=== PATIENT | female | born 1985 | race Caucasian/White ===

== ENCOUNTER 2023-06-14 09:09 | Outpatient (CLI) | payer MEDICAID, SELFPAY ==
[2023-06-14 15:13] LABS: Chlamydia DNA Amplified* NOT DETECTED (No Detected); GC DNA Amplified* NOT DETECTED (No Detected)
== END 2023-06-14 09:10 | disposition home or self-care (01) ==
PROVIDERS: PCP Family Medicine; Visit Provider Obstetrics & Gynecology
DX: Z11.3 Encounter for screening for infections with a predominantly sexual mode of transmission (principal)
CPT/HCPCS: 87491; 87591

== ENCOUNTER 2023-09-07 10:55 | Outpatient (CLI) | payer MEDICAID, SELFPAY ==
--- NOTE | 2023-09-07 11:15 | US_ITS ---
Final Report Patient: ALISA MENDIOLA Facility:?[facility] Patient ID:?[id number] Site Patient ID:?[id number]. Site :?[id number] Study:?US OB Pelvis TV dating/viability-09/07/2023 12:09:01 PM Ordering Physician:LEONCIO Final Report: INDICATION: Dating and viability. LMP 07/07/2023 (irregular). COMPARISON: None. TECHNIQUE: Real-time dong-scale imaging of the pelvis was performed. FINDINGS: Sonographic imaging demonstrates a single living intrauterine gestation. The embryo has a regular cardiac rate measuring 138 beats per minute. The embryo`s crown-rump length measures 1.1 cm which corresponds to a gestational age of 7 weeks 1 day with sonographic due date 04/24/2024. There is a normal-appearing yolk sac. The placenta has not yet developed. No evidence of a perigestational hemorrhage. The right ovary measures 3.5 x 2.1 x 2.0 cm and the left ovary measures 4.4 x 2.0 x 1.9 cm. Corpus luteal cyst in the left ovary. No free fluid in the pelvic cul-de-sac. IMPRESSION: 1. Single living intrauterine gestation corresponding to a gestational age of 7 weeks 1 day with sonographic due date 04/24/2024. 2. The clinical gestational age by LMP is 8 weeks 6 days. Dictated by Niyah Parker MD @ 09/08/2023 2:32:42 AM (Electronic Signature)
== END 2023-09-07 10:56 | disposition home or self-care (01) ==
LOC: US 10:55
PROVIDERS: PCP Family Medicine; Visit Provider Physician Assistant
DX: Z34.91 Encounter for supervision of normal pregnancy, unspecified, first trimester (principal); Z3A.08 8 weeks gestation of pregnancy
CPT/HCPCS: 76817

== ENCOUNTER 2023-09-07 12:10 | Outpatient (CLI) | payer MEDICAID, SELFPAY | END 2023-09-07 12:11 | disposition home or self-care (01) | PROVIDERS: PCP Family Medicine; Visit Provider Physician Assistant | DX: Z34.91 Encounter for supervision of normal pregnancy, unspecified, first trimester (principal) | CPT/HCPCS: 86592; 86703; 86704; 86706; 86762; 86787; 86803; 86850; 86900; 86901; 87086; 87340 ==

== ENCOUNTER 2024-01-13 16:57 | Emergency (ER) | payer MEDICAID, SELFPAY ==
[2024-01-13 17:07] VITALS: BP 135/88; PULSE 82; RESP 18; TEMP 36.3; O2SAT 98; BMI 29.0
--- NOTE | 2024-01-13 17:17 | ED.GENADULT ---
HPI - General Adult General Chief complaint: Head Injury/Pain Stated complaint: 25 wks preg, fell on side and hit head Time Seen by Provider: 01/13/24 17:01 History of Present Illness HPI narrative: This 38-year-old female is 25 weeks and comes in because of a fall that occurred prior to arrival. She was stepping on a small step stool and as she planted her weight on the stool the legs of the stool collapsed causing her to fall in [place] wall where she hit her head. She then did fall on top of the stool. She was able to get up. She did not have any loss of consciousness. She does report a mild to moderate headache. She has not had any vomiting and does not report any other injury. Related Data Home Medications ?Medication ?Instructions ?Recorded ?Confirmed docosahexaenoic acid 200 mg mg PO 09/07/23 12/27/23 capsule ( DHA) calcium carbonate (Tums) 200 mg PO BID 12/27/23 12/27/23 Previous Rx's ?Medication ?Instructions ?Recorded sertraline 50 mg tablet 50 mg PO QDAY #90 tabs 10/26/23 Allergies Allergy/AdvReac Type Severity Reaction Status Date / Time amoxicillin Allergy Mild Vomiting Verified 12/27/23 08:10 Review of Systems Status of ROS: Reports: 10 or more systems reviewed and unremarkable except as noted in History and below Narrative: Constitutional: No fevers, no weight gain or loss. Eyes: No discharge. No vision changes. HENT: No congestion, no sore throat, no ear pain. Cardiovascular: No chest pain, no palpitations. Respiratory: No shortness of breath, no wheezes, no cough. Gastrointestinal: No abdominal pain, no vomiting, no diarrhea. Genitourinary: No dysuria, no hematuria. Musculoskeletal: Normal range of motion. Skin: No rashes, no pruritis. Neurological: No dizziness, weakness, sensory change, speech change. Endo/Heme/Allergies: No bruising or bleeding. No polydipsia. Pysch: no suicidality, no anxiety, no insomnia. All other systems reviewed and are negative. [facility] Medical History Migraines ?G43.909 - Migraine, unspecified, not intractable, without status migrainosus (ICD-10) Right foot pain ?M79.671 - Pain in right foot (ICD-10) History of abnormal cervical Pap smear (2007) ?Z87.42 - Personal history of other diseases of the female genital tract (ICD-10) History of vaginal delivery (02/23/17) PUPP (pruritic urticarial papules and plaques of ) ?O26.86 - Pruritic urticarial papules and plaques of (PUPPP) (ICD-10) Surgical History History of nevus excision ?Z98.890 - Other specified postprocedural states (ICD-10) ?Z87.2 - Personal history of diseases of the skin and subcutaneous tissue (ICD-10) History of wisdom tooth extraction ?K08.409 - Partial loss of teeth, unspecified cause, unspecified class (ICD-10) Family History Father High blood pressure High cholesterol Maternal Grandmother Lung cancer Uncle Esophageal cancer Brain cancer Colon cancer Social History Narrative: Occupation: Retail. Marital status: Single. Sabianist/cultural needs: no. Chemical or radiation exposure: no. Pre- tobacco use: no. Pre- alcohol use: no. Current tobacco use: no. Current alcohol use: no. Recreational drug use: no. Dietary restrictions: no. Blood transfusion acceptable in an emergency: yes. PSYCHOSOCIAL HISTORY: History of depression or currently depressed: Yes. Current or past physical, emotional, or sexual mistreatment: no. Problems that will make it hard to make it to appointments: no. What is your current living situation?: I presently have a place to live Problems where you live: no known problems In the past 12 months, utilities in danger of being shut off: no In past 12 months, lack of transportation kept you from medical appts, meetings, work, or getting things needed for daily living: no In the past 12 mos, have been you worried that your food would run out before you had money to buy more?: never true In the past 12 mos, the food you bought just didn't last and you didn't have money to buy more?: never true Smoking Status: Never smoker Do you use any of these nicotine containing products: None How often do you have a drink containing alcohol: never AUDIT-C Alcohol total score: 0 Non-prescribed substance use: denies use How often does anyone, including family, friends and others, physically hurt you: never How often does anyone, including family, friends and others, insult or talk down to you: never How often does anyone, including family, friends and others, threaten you with harm: never How often does anyone, including family, friends and others, scream or curse at you: never Little interest or pleasure in doing things: nearly every day Feeling down, depressed, or hopeless: more than half the days service: No Exam Narrative: Exam Narrative: Constitutional: Well-developed, well-nourished, no acute distress. HEENT: Normocephalic, atraumatic. Neck: Normal range of motion. Nontender. Supple. Heart: Intact distal pulses. Lungs: No chest discomfort. No wheezes, rhonchi, or rales. Abdomen: Nontender. Gravid. Back: Normal range of motion. Extremities: Normal range of motion. No injury. Skin: Intact. No rash. Warm. No erythema or pallor. Neurologic: No altered sensation. No weakness. Alert and oriented. Psychiatric: No suicidality. No anxiety or depression. No insomnia. Nursing notes and vitals signs are reviewed. Const: Vital Signs, click to edit/add: Vital Signs - 24 hr 01/13/24 17:07 Temperature 97.4 F L Pulse Rate [Pulse Oximeter] 82 Respiratory Rate 18 Blood Pressure [Ri ght Upper Arm] 135/88 Pulse Oximetry 98 Oxygen Delivery Me thod Room Air Course Vital Signs Vital signs: Initial Vital Signs Temperature 97.4 F L 01/13/24 17:07 Temperature Source Temporal Artery Scan 01/13/24 17:07 Pulse Rate 82 01/13/24 17:07 Pulse Rhythm Regular 01/13/24 17:07 Respiratory Rate 18 01/13/24 17:07 Blood Pressure 135/88 01/13/24 17:07 Blood Pressure Mean 103 01/13/24 17:07 Pulse Oximetry 98 01/13/24 17:07 Oxygen Delivery Method Room Air 01/13/24 17:07 Vital Signs Temperature 97.4 F L 01/13/24 17:07 Pulse Rate 82 01/13/24 17:07 Respiratory Rate 18 01/13/24 17:07 Blood Pressure 135/88 01/13/24 17:07 Pulse Oximetry 98 01/13/24 17:07 Oxygen Delivery Method Room Air 01/13/24 17:07 Temperature 97.4 F L 01/13/24 17:07 Pulse Rate 82 01/13/24 17:07 Respiratory Rate 18 01/13/24 17:07 Blood Pressure 135/88 01/13/24 17:07 Pulse Oximetry 98 01/13/24 17:07 Oxygen Delivery Method Room Air 01/13/24 17:07 Medical Decision Making MDM Narrative Medical decision making narrative: This patient is concerned about her after a fall that occurred at home. She does not really have any injuries related to the fall but comes in because of concern for her baby. She states that she is feeling the baby move. heart tones are measured at around 150 beats per minute. I did also use bedside ultrasound to directly observe her . She is okay to be discharged home to continue current plans. Discharge Plan Discharge Clinical Impression: Feared condition not demonstrated Patient Disposition: Home, Self-Care Condition: Stable Additional Instructions: Continue current plans. Use Tylenol as needed and directed. Follow up with MD as scheduled or also as needed. Prescriptions: No Action DHA 200 mg capsule PO calcium carbonate [Tums] 200 mg calcium (500 mg) tablet,chewable 200 mg PO BID sertraline 50 mg tablet 50 mg PO QDAY Qty: 90 0RF Rx Instructions: 1/2 tab daily x 1 week, then 50 mg daily Follow Up/Referrals: Adelaida Rao MD [Primary Care Provider] - Stand Alone Forms: [facility] Info Instructions Procedures Ultrasound Other exam #1: Anatomical areas examined: Obstetric ultrasound at 25 weeks gestation. Indications: Fall. Exam type: focused emergency ultrasound Description/findings: Normal anatomy and activity. Normal amount of amniotic fluid. Impression: Normal exam.
== END 2024-01-13 17:50 | disposition home or self-care (01) ==
PROVIDERS: Emergency Provider Emergency Medicine Emergency Medical Services; PCP Family Medicine
DX: S09.90XA Unspecified injury of head, initial encounter (principal); Z3A.25 25 weeks gestation of pregnancy; Z71.1 Person with feared health complaint in whom no diagnosis is made
CPT/HCPCS: 76815; 99282; 99283; 99284

== ENCOUNTER 2024-01-24 11:00 | Outpatient (CLI) | payer MEDICAID, SELFPAY | END 2024-01-24 11:01 | disposition home or self-care (01) | LOC: NFLDREF 01-26 06:09 | PROVIDERS: PCP Family Medicine; Referring Provider Family Medicine; Visit Provider Obstetrics & Gynecology | DX: Z34.82 Encounter for supervision of other normal pregnancy, second trimester (principal) | CPT/HCPCS: 86592 ==

== ENCOUNTER 2024-02-29 10:26 | Outpatient (CLI) | payer MEDICAID, SELFPAY ==
[2024-02-29 10:36] VITALS: BP 112/69; PULSE 87; RESP 18; TEMP 36.9; O2SAT 97; BMI 31.1
--- NOTE | 2024-02-29 10:53 | ED.NURSE ---
Consulted with OB RN, pt report given. Pt brought down to OB.
[2024-02-29 11:10] VITALS: BP 114/70; PULSE 74; PULSE 82; TEMP 36.9; O2SAT 97
[2024-02-29 11:43] LABS: Basophils Absolute Auto 0.04 K/uL (0.00-0.30); Basophils Percent Auto 0.4 % (0.0-3.0); Eosinophils Absolute Auto 0.09 K/uL (0.00-0.50); Eosinophils Percent Auto 0.9 % (0.0-7.0); Hematocrit 32.3 % (33.0-51.0); Hemoglobin* 10.2 gm/dL (12.0-16.0); Immature Granulocytes Abs Auto 0.13 K/uL (0.00-0.30); Immature Granulocytes Pct Auto 1.3 %; Lymphocytes Percent Auto 12.2 % (20-44); Mean Corpuscular HGB Conc 32 gm/dL (32-36); Mean Corpuscular Hemoglobin 28 pg (26-34); Mean Corpuscular Volume 87 fL (80-100); Monocytes Percent Auto 6.9 % (0.0-11.0); Neutrophils Percent Auto 78.3 % (42.0-72.0); Platelet Count* 206 K/uL (140-440); RDW Coefficient of Variation % 15.2 % (11.5-15.5); Red Blood Count 3.71 m/uL (4.00-5.20); White Blood Count* 9.79 K/uL (4.50-11.00)
[2024-02-29 12:10] LABS: Slide Review Reflex No
--- NOTE | 2024-02-29 12:50 | PC.OBNST ---
NST Note NST Note Start: 02/29/24 12:48 Freq: ONCE Status: Active Protocol: Document 02/29/24 12:44 NUBIA (Rec: 02/29/24 12:50 RANDALL [id number]) NST Note 3 Para (# of births) 1 EDC 04/24/24 Gestational Age In Weeks & Days 32 Weeks & 1 Days Other Complaints Pt complaining of lightheadedness and being dizzy. Almost passed out at work. Reactive Yes Appropriate for Gestational Age Yes RN Taj Camacho RN Date 02/29/24 Reactive Yes Appropriate for Gestational Age Yes MARVIN Ochoa RN Date 02/29/24 OB NST charge Yes Complete NST Note via Write Note Yes The provider's electronic signature indicates the NST is reactive/appropriate for gestational age. *Note to provider: If an addendum is required, open the patient's chart and click on the note under the Nurse/Allied Health tab.
[2024-02-29 13:00] LABS: Ferritin* 5.9 ng/mL (6.24-137.0)
--- NOTE | 2024-02-29 15:54 | W.PM.OBO ---
OB Outpatient HPI History of Present Illness Date Seen: 02/29/24 History of Present Illness: 38 year old at 32 1/7 weeks gestation presents with chief complaint of lightheadedness. She has had lightheadedness with spots in her vision most mornings in recent history. Today, she thought that she was going to faint, and noted a rapid heart rate. She was directed to the emergency room and presented to the Center. She does eat breakfast. She did eat breakfast this morning. She has lower extremity edema, and is using compression stockings. She is known to be anemic, with her most recent hemoglobin 9.0, hematocrit 28.2 on 01/24/2024. She has been taking iron every morning. Meds Home Medications and Allergies Home Medications ?Medication ?Instructions ?Recorded ?Confirmed ?Type docosahexaenoic acid 200 mg mg PO 09/07/23 02/14/24 History capsule ( DHA) calcium carbonate (Tums) 200 mg PO BID 12/27/23 02/29/24 History ferrous sulfate 27 mg iron tablet 27 mg PO QDAY 02/14/24 02/29/24 History Allergies Allergy/AdvReac Type Severity Reaction Status Date / Time amoxicillin Allergy Mild Vomiting Verified 02/29/24 10:41 [facility] Medical History Migraines ?G43.909 - Migraine, unspecified, not intractable, without status migrainosus (ICD-10) Right foot pain ?M79.671 - Pain in right foot (ICD-10) History of abnormal cervical Pap smear (2007) ?Z87.42 - Personal history of other diseases of the female genital tract (ICD-10) History of vaginal delivery (02/23/17) PUPP (pruritic urticarial papules and plaques of ) ?O26.86 - Pruritic urticarial papules and plaques of (PUPPP) (ICD-10) Surgical History History of nevus excision ?Z98.890 - Other specified postprocedural states (ICD-10) ?Z87.2 - Personal history of diseases of the skin and subcutaneous tissue (ICD-10) History of wisdom tooth extraction ?K08.409 - Partial loss of teeth, unspecified cause, unspecified class (ICD-10) Family History Father High blood pressure High cholesterol Maternal Grandmother Lung cancer Uncle Esophageal cancer Brain cancer Colon cancer Social History Narrative: Occupation: Retail. Marital status: Single. Islam/cultural needs: no. Chemical or radiation exposure: no. Pre- tobacco use: no. Pre- alcohol use: no. Current tobacco use: no. Current alcohol use: no. Recreational drug use: no. Dietary restrictions: no. Blood transfusion acceptable in an emergency: yes. PSYCHOSOCIAL HISTORY: History of depression or currently depressed: Yes. Current or past physical, emotional, or sexual mistreatment: no. Problems that will make it hard to make it to appointments: no. What is your current living situation?: I presently have a place to live Problems where you live: no known problems In the past 12 months, utilities in danger of being shut off: no In past 12 months, lack of transportation kept you from medical appts, meetings, work, or getting things needed for daily living: no In the past 12 mos, have been you worried that your food would run out before you had money to buy more?: never true In the past 12 mos, the food you bought just didn't last and you didn't have money to buy more?: never true Smoking Status: Never smoker Do you use any of these nicotine containing products: None How often do you have a drink containing alcohol: never AUDIT-C Alcohol total score: 0 Non-prescribed substance use: denies use How often does anyone, including family, friends and others, physically hurt you: never How often does anyone, including family, friends and others, insult or talk down to you: never How often does anyone, including family, friends and others, threaten you with harm: never How often does anyone, including family, friends and others, scream or curse at you: never Little interest or pleasure in doing things: nearly every day Feeling down, depressed, or hopeless: more than half the days service: No History History 3 Elective abortions 1 Para 1 Spontaneous abortions 0 Hx # Term Pregnancies 1 Ectopic pregnancies 0 Hx # Pregnancies 0 Multiple births 0 Number of Living Children 1 Past Pregnancies Del. Date GA/Weeks Outcome Route wt Inf Gender Labor Lgth Anesthesia Location Provider Compli 02/23/17 39 live - full term vaginal delivery 7 lb 7 oz Female 24hrs epidural [place] [facility] Felix Delivery Date: 02/23/17 Last Updated by: October MARIANA Quiroz Induction for intolerable PUPPS OB - H&P: Exam Physical Exam Vital signs: Temp Pulse Resp BP Pulse Ox O2 Del Method 98.5 F 74 18 114/70 97 Room Air 02/29/24 11:10 02/29/24 11:10 02/29/24 10:36 02/29/24 11:10 02/29/24 11:10 02/29/24 10:36 Narrative: Physical exam: Vitals as noted above. General: No acute distress Psych: Alert and oriented x 3, full affect HEENT: Normocephalic, atraumatic Abdomen: Soft, nontender, gravid Lower extremities: Trace edema with bilateral compression stockings noted tracing: Baseline 130, accelerations present, no decelerations, moderate variability. Labs Labs Laboratory Tests 02/29/24 Range/Units 11:35 WBC 9.79 (4.50-11.00) K/uL RBC 3.71 L (4.00-5.20) m/uL Hgb 10.2 L (12.0-16.0) gm/dL Hct 32.3 L (33.0-51.0) % MCV 87 (80-100) fL MCH 28 (26-34) pg MCHC 32 (32-36) gm/dL RDW Coeff of Jorden 15.2 (11.5-15.5) % Plt Count 206 (140-440) K/uL Neut % (Auto) 78.3 H (42.0-72.0) % Lymph % (Auto) 12.2 L (20-44) % Hettinger % (Auto) 6.9 (0.0-11.0) % Eos % (Auto) 0.9 (0.0-7.0) % Baso % (Auto) 0.4 (0.0-3.0) % Neut # (Auto) 7.70 H (1.7-7.0) K/uL Lymph # (Auto) 1.20 (0.90-2.90) K/uL Hettinger # (Auto) 0.70 (0.00-0.90) K/UL Eos # (Auto) 0.09 (0.00-0.50) K/uL Baso # (Auto) 0.04 (0.00-0.30) K/uL Abs Immat Gran (auto) 0.13 (0.00-0.30) K/uL Imm/Tot Granulo (auto) 1.3 % Ferritin 5.9 L (6.24-137.0) ng/mL Assessment and Plan Assessment and plan (1) : Status: Acute (2) Pre-syncope: Status: Acute Assessment and Plan: No tachycardia, no hypertension, normal mental status on exam. She continues to be anemic, with some improvement on iron, but still only with a hemoglobin of 10.2. I suspect that this, combined with vasodilation in her lower extremities due to and perhaps intermittent hypoglycemia have contributed to her symptoms. I will arrange for her to receive iron infusions. Otherwise, she was discharged home in good condition.
== END 2024-02-29 12:44 | disposition home or self-care (01) ==
LOC: ED 10:46 → OB 10:50 → OB OUT 13:02 → OB 03-01 08:42
PROVIDERS: Emergency Provider Family Medicine; PCP Family Medicine; Visit Provider Obstetrics & Gynecology
DX: O09.523 Supervision of elderly multigravida, third trimester (principal); O99.013 Anemia complicating pregnancy, third trimester; D64.9 Anemia, unspecified; Z3A.32 32 weeks gestation of pregnancy; R42 Dizziness and giddiness; R55 Syncope and collapse
CPT/HCPCS: 36415; 59025; 82728; 85025; G0463

== ENCOUNTER 2024-03-01 09:02 | Outpatient (CLI) | payer MEDICAID, SELFPAY ==
--- NOTE | 2024-03-01 09:15 | CRLHL7_ITS ---
For Patients: As a result of the Century Cures Act, medical imaging exams and procedure reports are released immediately into your electronic medical record. You may view this report before your referring provider. If you have questions, please contact your health care provider. INDICATION: Third trimester scan, evaluate growth. Large for dates. COMPARISON: 09/07/2023 TECHNIQUE: Real time dong scale imaging of the fetus was performed. FINDINGS: Sonographic imaging demonstrates a single living intrauterine gestation. Fetus demonstrates a regular cardiac rate of 132 beats per minute. Fetus has a vertex position. The placenta lies fundal. Amniotic fluid volume appears normal and there is a single deepest vertical pocket: 5.7 cm. The estimated weight is 2210gm which lies at the 78th %. BPD greater than 97th percentile. HC 79th percentile. AC 72nd percentile. FL 67th percentile. The HC/AC ratio measures 1.07 range (0.94-1.11). CSP measures 8.7 millimeters. IMPRESSION: Sonographic gestational age 34 weeks 1 day and sonographic due date 04/11/2024. Sonographic age 13 days ahead of the clinical age. Estimated weight 78th percentile. Abdominal circumference 72nd percentile. There appears to be a normal anatomic variant of a cavum veli interpositi. Dictated by Nakul Sutherland MD @ 03/02/2024 5:38:00 AM (Electronically Signed)
== END 2024-03-01 09:03 | disposition home or self-care (01) ==
LOC: US 09:02
PROVIDERS: PCP Family Medicine; Visit Provider Obstetrics & Gynecology
DX: O36.63X0 Maternal care for excessive fetal growth, third trimester, not applicable or unspecified (principal); Z3A.34 34 weeks gestation of pregnancy
CPT/HCPCS: 76816

== ENCOUNTER 2024-03-06 10:20 | Outpatient (RCR) | payer MEDICAID, SELFPAY ==
--- NOTE | 2024-03-02 12:31 | URNOTE ---
Prior auth is not required for Infed ([id number]) per [facility]'s Medical Injectable Drug Authorization lis.
[2024-03-06 10:36] VITALS: BP 110/75; PULSE 95; RESP 15; TEMP 36.8; O2SAT 96
[2024-03-06] MEDS: IRON DEXTRAN COMPLEX 25 MG in 0.9 % SODIUM CHLORIDE 100 ml 100 ML 402 MG IVPB (11:18)
[2024-03-06 11:38] VITALS: BP 102/64; PULSE 77; RESP 14; O2SAT 97
[2024-03-06] MEDS: IRON DEXTRAN COMPLEX 975 MG in 0.9 % SODIUM CHLORIDE 250 ml 250 ML 269.5 MG IVPB (12:44)
[2024-03-06 13:52] VITALS: BP 112/73; PULSE 74; RESP 16; O2SAT 97
[2024-03-18 17:50] VITALS: BP 118/67; PULSE 81
== END 2024-09-02 23:59 | disposition home or self-care (01) ==
LOC: CCIC 10:20
PROVIDERS: PCP Family Medicine; Referring Provider Family Medicine; Visit Provider Clinical Nurse Specialist
DX: D50.9 Iron deficiency anemia, unspecified (principal)
CPT/HCPCS: 96365; 96376; J1750; J7050

== ENCOUNTER 2024-03-18 17:09 | Outpatient (CLI) | payer MEDICAID, SELFPAY ==
[2024-03-18 17:32] VITALS: RESP 15; TEMP 36.6
[2024-03-18 17:57] LABS: Amnisure Rom* Negative
--- NOTE | 2024-03-18 19:06 | PC.OBNST ---
NST Note NST Note Start: 03/18/24 17:13 Freq: ONCE Status: Active Protocol: Document 03/18/24 19:04 [facility] (Rec: 03/18/24 19:06 [facility] Desktop) NST Note 3 Para (# of births) 1 EDC 04/24/24 Gestational Age In Weeks & Days 34 Weeks & 5 Days Patient Presented with Complaint(s) of Leaking fluid Reactive Yes Appropriate for Gestational Age Yes MARVIN Briseno, RN Date 03/18/24 Reactive Yes Appropriate for Gestational Age Yes MARVIN Gilbert RNC Date 03/18/24 OB NST charge Yes Complete NST Note via Write Note Yes The provider's electronic signature indicates the NST is reactive/appropriate for gestational age. *Note to provider: If an addendum is required, open the patient's chart and click on the note under the Nurse/Allied Health tab.
== END 2024-03-18 18:20 | disposition home or self-care (01) ==
LOC: OB 18:04 → OB OUT 18:17 → OB 18:37
PROVIDERS: PCP Family Medicine; Referring Provider Obstetrics & Gynecology; Visit Provider Obstetrics & Gynecology
DX: O47.03 False labor before 37 completed weeks of gestation, third trimester (principal); Z3A.34 34 weeks gestation of pregnancy
CPT/HCPCS: 59025; 84112; G0463

== ENCOUNTER 2024-03-27 17:59 | Outpatient (CLI) | payer MEDICAID, SELFPAY ==
--- NOTE | 2024-03-28 18:46 | PC.OBNST ---
NST Note NST Note Start: 03/27/24 17:36 Freq: ONCE Status: Discharge Protocol: Document 03/27/24 18:[address] [facility] (Rec: 03/27/24 18:[address] [facility] Desktop) NST Note 3 Para (# of births) 1 EDC 04/24/24 Gestational Age In Weeks & Days 36 Weeks & 0 Days Patient Presented with Complaint(s) of Decreased movement Reactive Yes Appropriate for Gestational Age Yes MARVIN Mills Date 03/27/24 Reactive Yes Appropriate for Gestational Age Yes MARVIN Couch Date 03/27/24 OB NST charge Yes Complete NST Note via Write Note Yes The provider's electronic signature indicates the NST is reactive/appropriate for gestational age. *Note to provider: If an addendum is required, open the patient's chart and click on the note under the Nurse/Allied Health tab.
== END 2024-03-27 18:35 | disposition home or self-care (01) ==
LOC: OB OUT 17:59 → OB 18:14
PROVIDERS: PCP Family Medicine; Visit Provider Obstetrics & Gynecology
DX: O36.8130 Decreased fetal movements, third trimester, not applicable or unspecified (principal); Z3A.36 36 weeks gestation of pregnancy
CPT/HCPCS: 59025; G0463

== ENCOUNTER 2024-03-29 09:31 | Outpatient (CLI) | payer MEDICAID, SELFPAY ==
--- NOTE | 2024-03-29 10:15 | CRLHL7_ITS ---
For Patients: As a result of the Century Cures Act, medical imaging exams and procedure reports are released immediately into your electronic medical record. You may view this report before your referring provider. If you have questions, please contact your health care provider. INDICATION: growth scan and prominent CSP COMPARISON: 03/01/2024 TECHNIQUE: Real time dong scale imaging of the fetus was performed. FINDINGS: Sonographic imaging demonstrates a single living intrauterine gestation. Fetus demonstrates a regular cardiac rate of 139 beats per minute. Fetus has a vertex position. The placenta lies fundal posterior. Amniotic fluid volume appears normal and there is a single deepest vertical pocket: 6.3 cm. MITCHELL 22.1 cm. The estimated weight is 3345gm which lies at the 90th %. On the prior OB ultrasound exam dated 03/01/2024 the estimated weight was at the 78th%. Abdominal circumference are proximally 97th percentile. BPD greater than 97th percentile. HC 84th percentile. FL 34th percentile. The HC/AC ratio measures 0.98 range (0.90-1.06). CSP measures 9.3 millimeters, previously measuring 8.7 millimeters. IMPRESSION: Sonographic gestational age 38 weeks 0 days and a sonographic due date 04/12/2024. Sonographic age 12 days ahead of the clinical age. Estimated weight 90th percentile. Abdominal circumference approximately 97th percentile. CSP measures 9.3 millimeters. Dictated by Nakul Sutherland MD @ 03/29/2024 11:50:59 AM (Electronically Signed)
== END 2024-03-29 09:32 | disposition home or self-care (01) ==
LOC: US 09:31
PROVIDERS: PCP Family Medicine; Visit Provider Obstetrics & Gynecology
DX: O09.523 Supervision of elderly multigravida, third trimester (principal); Z3A.38 38 weeks gestation of pregnancy
CPT/HCPCS: 76816

== ENCOUNTER 2024-03-29 11:29 | Outpatient (CLI) | payer MEDICAID, SELFPAY ==
[2024-03-30 11:29] LABS: Strep B DNA Probe Negative (Negative)
[2024-03-30 11:30] LABS: Strep B Susceptibility Needed? No
== END 2024-03-29 11:30 | disposition home or self-care (01) ==
LOC: NFLDREF 11:29
PROVIDERS: PCP Family Medicine; Visit Provider Obstetrics & Gynecology
DX: Z34.93 Encounter for supervision of normal pregnancy, unspecified, third trimester (principal); O36.63X0 Maternal care for excessive fetal growth, third trimester, not applicable or unspecified; Z3A.38 38 weeks gestation of pregnancy
CPT/HCPCS: 76816; 87081; 87653

== ENCOUNTER 2024-04-18 05:06 | Inpatient (IN) | payer MEDICAID, SELFPAY ==
[2024-04-18] VITALS (32 sets, daily range): BP systolic 102–131; BP diastolic 59–84; PULSE 66–113; RESP 16–20; TEMP 36.1–36.9; O2SAT 95–100; BMI 34.9
[2024-04-18] MEDS: LACTATED RINGERS 1000 ML 1,000 ML 900 ML IV (05:54)
[2024-04-18 05:57] LABS: Basophils Percent Auto 0.2 % (0.0-3.0); Hematocrit 34.7 % (33.0-51.0); Hemoglobin* 11.4 gm/dL (12.0-16.0); Immature Granulocytes Pct Auto 0.7 %; Lymphocytes Percent Auto 10.4 % (20-44); Mean Corpuscular HGB Conc 33 gm/dL (32-36); Mean Corpuscular Hemoglobin 28 pg (26-34); Mean Corpuscular Volume 86 fL (80-100); Monocytes Percent Auto 7.1 % (0.0-11.0); Neutrophils Percent Auto 80.6 % (42.0-72.0); Platelet Count* 163 K/uL (140-440); RDW Coefficient of Variation % 15.5 % (11.5-15.5); Red Blood Count 4.02 m/uL (4.00-5.20); White Blood Count* 12.23 K/uL (4.50-11.00)
[2024-04-18 05:59] LABS: Slide Review Reflex No
--- NOTE | 2024-04-18 07:02 | P.OBHP_ITS ---
OB - H&P: HPI History of Present Illness Chief complaint: Maternity Narrative: Kira Yeung is a 38 year old female Specific Issues/Plans [id number] # AMA Cell free DNA: Negative, consistent with male sex Level 2 ultrasound: completed 11/21, No anomalies visualized - EFW 229 (59%ile), SDP 4.7cm, posterior placenta w/o previa #Traumatic vaginal delivery, History of shoulder dystocia? On 01/23 patient described in detail a shoulder dystocia with her last delivery, please see note for details. On review of delivery note in 2016, they note no difficulty with delivery of the shoulders. Requesting delivery upon maternal request Scheduling form sent out for 39 1/7 weeks on 04/18/24 [x] Informed consent at 36 weeks # Generalized anxiety, diagnosed 10/25/2023. PHQ-9 and BERTA-7 scores 19 and 21 respectively on this day. * Treated with sertraline 50 mg daily. * History of depression & anxiety # Asthma, currently medication not needed # Nonimmune varicella status Vaccination also due for 3rd HPV vaccine # Bilateral forefoot pain. Referral placed to podiatry #Finish HPV series #Anemia, with Hb improving from 9 to 10.2 (02/28) after patient presented to Center with presyncope. s/p Iron infusion. 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 Repeat US to reassess later in 3rd trimester to assure there is no ventriculomegaly. Otherwise no further testing needed; no deleterious effect on brain development. [x] CSP measured at 9mm. Discussed uncertain significance of this finding, s/p normal level 2 US. No ventriculomegaly. Discussed no further assessment required. Patient had negative gonorrhea and chlamydia screening in May 2023, declines repeat screening at new OB Ultrasounds: 03/01/24 = 32 3/7: cephalic, EFW 78%, BPD more than the 97th percentile, HC: 79th percentile, AC: 72 percentile, FL: 66 percentile. Single deepest pocket of amniotic fluid: 5.7 cm, normal anatomic variant of a cavum veli interpositi. 03/29/24: EFW 3345g at 90%ile. BPD >97%ile, HC 94%ile, FL 34%ile and AC 97%ile. CSP measures 9.3mm. Tdap: 02/14/24 RSV: 03/29/24 H&P: 03/29/24 History of Present Narrative: Ms. Yeung is a 38yo at 39w1d GA admitted for scheduled primary . is complicated by AMA, depression. She describes a traumatic history and shoulder dystocia, though no shoulder dystocia was documented in delivery note. Regardless, she has been counseled repeatedly as an outpatient and desires primary today. Complete H&P completed by myself, please see that note for details. She is feeling well with no acute concerns. No regular/painful contractions, vaginal bleeding or leaking of fluids. Endorses active movement. Labs Blood type: O (+) positive PFSH PFSH Medical History Bilateral foot pain ?M79.671 - Pain in right foot (ICD-10) ?M79.672 - Pain in left foot (ICD-10) Pre-syncope ?R55 - Syncope and collapse (ICD-10) anomaly Migraines ?G43.909 - Migraine, unspecified, not intractable, without status migrainosus (ICD-10) Right foot pain ?M79.671 - Pain in right foot (ICD-10) History of abnormal cervical Pap smear (2007) ?Z87.42 - Personal history of other diseases of the female genital tract (ICD-10) History of vaginal delivery (02/23/17) PUPP (pruritic urticarial papules and plaques of ) ?O26.86 - Pruritic urticarial papules and plaques of (PUPPP) (ICD- 10) Surgical History History of nevus excision ?Z98.890 - Other specified postprocedural states (ICD-10) ?Z87.2 - Personal history of diseases of the skin and subcutaneous tissue (ICD-10) History of wisdom tooth extraction ?K08.409 - Partial loss of teeth, unspecified cause, unspecified class (ICD- 10) Family History Father High blood pressure High cholesterol Maternal Grandmother Lung cancer Uncle Esophageal cancer Brain cancer Colon cancer Social History Narrative: Occupation: Retail. Marital status: Single. Synagogue/cultural needs: no. Chemical or radiation exposure: no. Pre- tobacco use: no. Pre- alcohol use: no. Current tobacco use: no. Current alcohol use: no. Recreational drug use: no. Dietary restrictions: no. Blood transfusion acceptable in an emergency: yes. PSYCHOSOCIAL HISTORY: History of depression or currently depressed: Yes. Current or past physical, emotional, or sexual mistreatment: no. Problems that will make it hard to make it to appointments: no. What is your current living situation?: I presently have a place to live Problems where you live: no known problems In the past 12 months, utilities in danger of being shut off: no In past 12 months, lack of transportation kept you from medical appts, meetings, work, or getting things needed for daily living: no In the past 12 mos, have been you worried that your food would run out before you had money to buy more?: never true In the past 12 mos, the food you bought just didn't last and you didn't have money to buy more?: never true Smoking Status: Never smoker Do you use any of these nicotine containing products: None How often do you have a drink containing alcohol: never AUDIT-C Alcohol total score: 0 Non-prescribed substance use: denies use How often does anyone, including family, friends and others, physically hurt you : never How often does anyone, including family, friends and others, insult or talk down to you: never How often does anyone, including family, friends and others, threaten you with harm: never How often does anyone, including family, friends and others, scream or curse at you: never Little interest or pleasure in doing things: nearly every day Feeling down, depressed, or hopeless: not at all service: No Meds Home Medications and Allergies Home Medications ?Medication ?Instructions ?Recorded ?Confirmed ?Type docosahexaenoic acid 200 mg 200 mg PO DAILY 09/07/23 04/18/24 History capsule ( DHA) calcium carbonate (Tums) 200 mg PO BID 12/27/23 04/18/24 History Allergies Allergy/AdvReac Type Severity Reaction Status Date / Time amoxicillin Allergy Mild Vomiting Verified 04/18/24 05:28 OB - H&P: Exam Physical Exam: Vital signs: Temp Pulse BP 97.8 F 66 109/63 04/18/24 06:52 04/18/24 06:45 04/18/24 06:45 Narrative: General: Alert and oriented, in no acute distress Psych: Appropriate mood and affect Abdomen: Gravid. NST: Reactive NST. Category 1 - baseline 130bpm, moderate variability, 15x15 accels present and no decelerations. [place]: Contract every 4-6 minutes. OB - Results Labs Labs: Short CBC 04/18/24 04/18/24 Range/Units 05:45 05:45 WBC 12.23 H (4.50-11.00) K/uL Hgb Cancelled 11.4 L Hct 34.7 (33.0-51.0) % Plt Count 163 (140-440) K/uL Assessment and Plan Assessment and plan (1) : Status: Acute (2) AMA (advanced maternal age) multigravida 35+: Status: Acute (3) Anxiety and depression: Status: Acute (4) PCOS (polycystic ovarian syndrome): Problem comment: Suspect PCOS. Per 06/06/21 [facility] chart note: Does not meet criteria. Conceived spontaneously in 2017. Status: Chronic Plan Ms. Yeung is a 38yo at 39w1d GA admitted for scheduled primary by maternal request (history of possible shoulder dystocia). is complicated by AMA and depression. - Admit for primary - Reactive NST - Plan perioperative ancef. Amoxicillin allergy of vomiting, where cephalosporin is still preferred perioperative ppx. - BT O+, active T/S on file - Hgb 11.4 this morning
[2024-04-18] MEDS: CEFAZOLIN 2 GM in 0.9 % SODIUM CHLORIDE Mini-bag 100 ML IVPB (07:46)
[2024-04-18] MEDS: LACTATED RINGERS 1000 ML 1,000 ML 125 ML IV (08:06)
--- NOTE | 2024-04-18 08:11 | W.ANESCHARGE ---
Anesthesia Charges Start Date/Time Anesthesia Start Date: 04/18/24 Anesthesia Start Time: 07:17 Stop Date/Time Anesthesia Stop Date: 04/18/24 Anesthesia Stop Time: 08:51
[2024-04-18] MEDS: KETOROLAC 30 MG/ML inj IVP ×3 (08:36→22:02)
--- NOTE | 2024-04-18 08:58 | P.OBPRC_ITS ---
Procedure Time Seen by Provider: 08:45 Date of procedure: 04/18/24 Pre-op diagnosis: Maternal request for , AMA, depression Post-op diagnosis: same Procedure Done: Global Will [facility] bill your pro fee for this procedure?: Yes Blood Loss Measurement Type: QBL (3436) Bakri Used: No IV fluids (mL): 2,200 Urine Output (mL): 50 Urine Output Comment: Clear, yellow Surgeon: Melania Cleveland MD Anesthesia Type: Spinal Findings: Live-born male Unremarkable uterus, bilateral fallopian tubes and ovaries Procedure Name: Primary delivery Procedure Description: Patient was taken to the operating room with IV running. She received cefazolin in preoperative prophylaxis. Spinal anesthesia was administered. Heller catheter was inserted. She was prepped and draped in the usual sterile fashion. Anesthesia was tested and found to be adequate. A low-transverse skin incision was made with a scalpel and carried through to the underlying layer of fascia with the scalpel. The subcutaneous fat was dissected off the underlying fascia with Bovie and blunt dissection. The fascia was nicked in the midline with a scalpel, and this incision was extended laterally with scissors. The rectus muscles were in the midline. Peritoneum was identified and entered bluntly. Bovie was used to widen this opening laterally. Sammy O retractor was inserted and tightened down, providing excellent visualization of the lower uterine segment. The bladder reflection was found to be well below the planned site for hysterotomy. Low-transverse uterine incision was made with a scalpel. Incision was widened bluntly. The infant's head was grasped through the hysterotomy in OT position and elevated to the hysterotomy. The remainder of the body delivered without incident with the help of fundal pressure. No nuchal cord was noted. Cord was clamped and cut after 30 seconds. was handed off to attending nurses. The placenta was delivered with gentle traction on the cord. The uterus was cleaned of all clots and debris with the dry lap pad. The hysterotomy was reappr oximated with 0 Vicryl in a running, locked fashion. The inferior margin of the midline hysterotomy was noted to have large bleeding venous sinuses, where two jlcjkh-lz-clltl sutures were applied with 0 vicryl. Significant improvement of hemostasis was noted. 1g of TXA was requested and administered. Second layer of the same suture was used in imbricating fashion to obtain hemostasis. Serosal abrasion just medial to the left round ligament was noted to be bleeding, addressed with electrocautery then a single xvzwhh-lw-ceegw suture. The adnexa were examined and noted to be normal in appearance. The cul-de-sac and gutters were cleansed with dampened laparotomy sponge, removing any further clots and debris. The Sammy O retractor was removed. The hysterotomy was reexamined and found to be hemostatic. Devi was applied across the hysterotomy and the left serosal abrasion. The rectus muscles were examined and found to be hemostatic. The fascia was reapproximated with 0 Vicryl in a running fashion. Subcutaneous fat was irrigated and Bovie used on oozing vessels. The subcutaneous fat did not require closure. The skin was closed with a subcuticular stitch of 3-0 monocryl. Surgical glue was applied above this. Patient tolerated procedure well was taken to recovery area in stable condition. Surgical debrief was completed. details: - Liveborn male fetus - weight: 3860g - APGARs were 5 and 8 at 1 and 5 minutes respectively. resuscitation in the OR with CPAP was performed by nurses, DANIELA Miller was consulted. Please see her documentation for complete details. Complications: PPH due to tissue trauma, managed with surgical repair and IV TXA Pathology: none sent Surgery Debrief Performed: Yes Condition: stable Disposition: floor
--- NOTE | 2024-04-18 09:04 | W.ANESCHARGE ---
Anesthesia Charges Start Date/Time Anesthesia Start Date: 04/18/24 Anesthesia Start Time: 07:17 Stop Date/Time Anesthesia Stop Date: 04/18/24 Anesthesia Stop Time: 08:51
[2024-04-18] MEDS: LACTATED RINGERS 1000 ML 1,000 ML 100 ML IV (09:22)
--- NOTE | 2024-04-18 09:42 | P.NB_ITS ---
Nerve Block Nerve Block Time Seen by Provider: 08:43 Date Seen: 04/18/24 Type of block requested by surgeon for post-operative analgesia: TAP Side: bilateral Time out performed: Yes Verification of patient name: Yes Verification of date of : Yes Site marking: site marked Name of person performing procedure: Felice Continuous monitoring Was continuous monitoring of O2 sat, B/P, clinical research monitor, recorded every 15 minutes?: Yes Procedure Checklist: sterile prep, needles and gloves Ultrasound guided. Images saved: Yes Medications given in 5ml increments after negative aspiration: Marcaine %: 0.25 mL: 30 Needle gauge: 20 and Exparel mL: 10 Patient tolerated procedure well: Yes Additional comments: Needle noted between internal oblique and transversus abdominus. Local spread visualized Block Charges Block Charge (with Pro Fee): TAP Bilateral Use of Ultrasound Machine for Block: Yes- US Guidance/pain block
[2024-04-19] VITALS (14 sets, daily range): BP systolic 98–125; BP diastolic 58–80; PULSE 85–95; RESP 16–18; TEMP 36.7–37.1; O2SAT 96–98
[2024-04-19] MEDS: KETOROLAC 30 MG/ML inj IVP ×3 (03:44→15:30)
[2024-04-19] MEDS: ACETAMINOPHEN 500 MG TABLET 1000 MG PO ×3 (06:26→18:40)
[2024-04-19 06:35] LABS: Hemoglobin* 9.3 gm/dL (12.0-16.0)
[2024-04-19] MEDS: FERROUS SULFATE 325 MG TABLET PO (09:53)
[2024-04-19] MEDS: DOCUSATE SODIUM 100 MG CAPSULE PO (09:53)
--- NOTE | 2024-04-19 13:13 | PM.OBPNVD1 ---
OB - PN:Subj Subjective Date Seen: 04/19/24 Narrative: Kira is a 38 y.o. G 3 P 2 who was admitted to [facility] for primary c/s. ?She had a section that was uncomplicated. The patient feels well. ?The pain is well controlled with current medications. ?She has no new complaints. ?She is breast feeding and reports things are going well. the patient has done well.? Vitals have been stable.? She has remained afebrile.? Has a good appetite, is tolerating a general diet. ?She is voiding without difficulty.? She is passing gas and has not had a bowel movement.? She is ambulating and denies any dizziness.? Has small amount of rubra lochia. Baby was transferred to the NICU for respiratory distress but is doing well. She considered discharge today to be with him but has elected to discharge tomorrow. Problems: Anemia OB - PN: Obj Exam Physical Exam: Vital signs: Temp Pulse Resp BP Pulse Ox O2 Del Method 98.1 F 94 18 98/62 96 Room Air 04/19/24 12:00 04/19/24 12:00 04/19/24 12:00 04/19/24 12:00 04/19/24 12:00 04/19/24 12:00 Narrative: GENERAL APPEARANCE:? normal affect, alert, no distress MOOD:? appropriate CHEST:? clear to auscultation HEART:? regular rate and rhythm ABDOMEN:? soft, non-tender the uterine fundus is At Umbilicus, Midline and is appropriate for the stage of recovery. EXTREMITIES:? normal and trace edema INCISION: Dressing in place, clean, dry and intact. OB - PN: Obj Data Labs Labs: Laboratory Results - last 24 hr 04/19/24 06:15 Hgb 9.3 L OB - PN: A/P Delivery Assessment and Plan (1) Anxiety and depression: Status: Acute (2) Status post section: Status: Acute (3) care and examination immediately after delivery: Status: Acute (4) Lactating mother: Status: Acute Plan day: 1 Plan: routine care Comments: plan: Routine post-op and cares. , may see if needed Hgb 9.3. Iron supplement ordered orally every other day
[2024-04-19] MEDS: IBUPROFEN 600 MG TABLET PO (21:50)
[2024-04-19] MEDS: OXYCODONE 5 MG TABLET PO (21:52)
[2024-04-20] MEDS: ACETAMINOPHEN 500 MG TABLET 1000 MG PO ×2 (01:17→07:49)
[2024-04-20 03:29] LABS: Rapid Plasma Reagin (RPR) Non Reactive (Non Reactive)
[2024-04-20] MEDS: IBUPROFEN 600 MG TABLET PO (03:59)
[2024-04-20] MEDS: OXYCODONE 5 MG TABLET PO ×2 (03:59→08:34)
[2024-04-20 04:01] VITALS: BP 124/78; PULSE 78; RESP 16; TEMP 36.5; O2SAT 99
[2024-04-20 08:25] VITALS: BP 127/83; PULSE 75; RESP 16; TEMP 36.5; O2SAT 98
--- NOTE | 2024-04-20 08:44 | PM.OBDSVD1 ---
DS: Providers Provider Date Seen: 04/20/24 Date of admission: 04/18/24 05:06 Primary care physician: Adelaida Rao MD Admitting Clinician: Estefani Cleveland MD Attending Physician on discharge: Estefani Cleveland MD Date of Discharge: 04/20/24 DS: Diagnosis Discharge Diagnosis (1) Lactating mother: Status: Acute (2) care and examination immediately after delivery: Status: Acute (3) Status post section: Status: Acute (4) Anxiety and depression: Status: Acute Exam Narrative: Exam Narrative: GENERAL APPEARANCE:? normal affect, alert, no distress? MOOD:? appropriate? CHEST:? clear to auscultation and percussion? HEART:? regular rate and rhythm? ABDOMEN:? soft, non-tender the uterine fundus is 2 cm Below Umbilicus, Midline and is appropriate for the stage of recovery. Incision well approximated without edema, redness, warmth, or drainage. Glue closure intact.?? EXTREMITIES:? normal and no edema? Patient has no complaints? No active bleeding?? Doing well? She is requesting discharge home.? Const: Vital Signs, click to edit/add: Vital Signs - 24 hr 04/19/24 12:00 04/19/24 15:30 04/19/24 22:23 Temperature 98.1 F 98.8 F 98.1 F Pulse Rate [Left P ulse Oximeter] 94 87 85 Respiratory Rate 18 18 18 Blood Pressure [Ri ght Arm] 98/62 112/73 101/62 Pulse Oximetry 96 97 97 Oxygen Delivery Me thod Room Air Room Air Room Air 04/20/24 04:01 04/20/24 08:25 Temperature 97.7 F 97.7 F Pulse Rate [Left P ulse Oximeter] 78 75 Respiratory Rate 16 16 Blood Pressure [Ri ght Arm] 124/78 127/83 Pulse Oximetry 99 98 Oxygen Delivery Me thod Room Air Room Air Documenting provider has reviewed patient's vital signs: yes OB - DS: Summary Hospital Course Hospital Course: The patient is a 38 year old G 3 P 2 at 39.1 weeks gestation that was admitted to the Center on 04/18/24 for elective primary section. She had an delivery complicated by a hemorrhage. She delivered a viable male who was transferred shortly after delivery. She is planning to breast feed. the patient has done well. Her pain is well controlled with current medications.? She has no new complaints.? Urinary output is adequate and she is voiding without difficulty.? Has a good appetite, is tolerating a general diet, is passing flatus, and has not had a bowel movement.? Has scant amount of rubra lochia.? She is ambulating well. She is uncertain what she would like to do for contraception. Reviewed options compatible with . Will send home a prescription for PO iron supplement and encouraged increased dietary intake. She denies feeling symptomatic. Peripartum Data delivery method: Primary C/S; Non-Labored Procedures: Procedures Operation Date: 04/18/24 07:15 Actual Procedure Side Surgeon p Primary Section Estefani Cleveland MD Infant Gender: Male Discharge Plan: previously transferred to another facility Status at Discharge Functional status at discharge: independent ambulation Overall status at discharge: patient is progressing back to baseline Time Spent with Patient Time attestation: Total time spent providing and/or coordinating discharge services: Discharge Plan Discharge Disposition: Home, Self-Care Date of Admission: 04/18/24 05:06 Primary Care Provider: Adelaida Rao Condition: Stable Anticipated Discharge Date/Time: 04/20/24 10:00 Discharge Medications: New docusate sodium 100 mg Capsule 100 mg PO DAILY Qty: 100 0RF Rx Instructions: Take 1-2 tablets daily as needed for constipation. ferrous sulfate 325 mg (65 mg iron) Tablet 325 mg PO Q OTHER DAY Qty: 60 0RF ibuprofen 600 mg Tablet 600 mg PO Q6H PRN (Reason: Pain) Qty: 120 0RF oxycodone 5 mg Tablet 5 - 10 mg PO Q4H PRN (Reason: Pain) Qty: 14 0RF Continued DHA 200 mg capsule 200 mg PO DAILY calcium carbonate [Tums] 200 mg calcium (500 mg) tablet,chewable 200 mg PO BID sertraline 50 mg tablet 50 mg PO QDAY Qty: 90 2RF Rx Instructions: 1/2 tab daily x 1 week, then 50 mg daily Discharge Orders: Discharge Order (Routine); Ordered 04/20/24 Ordered By: Pati Bailon Consulting provider completed their portion of the discharge: Yes Patient Education: OB /Breast Feeding Additional Instructions: Discharge instructions were reviewed with the patient including signs and symptoms of infection and home going medications? ?? Activity restrictions:? Lifting Restrictions: 20 pounds for 6 weeks? No high-impact or core exercises for 6 weeks.?? No not submerge incision under water X 2 weeks?? Nothing vaginally for 6 weeks: no tampons or intercourse? Do not drive while taking narcotic pain medication(s)? Off Work or School for 8 weeks? ?? Symptoms to report to doctor:? -Bleeding that saturates more than one pad per hour? -Passing clots larger than the size of a golf ball? -Pain not relieved by prescribed medication? -Fever above 100.4 degrees Fahrenheit? -A foul vaginal odor? -Difficulty in emotions, mood and functions? -Thoughts of hurting yourself and/or ? -Painful, reddened area in your breast? -Any drainage, redness or tenderness in your IV/epidural site? -Severe headache that doesn't improve after taking medications? -Changes in vision, including temporary loss of vision, blurred vision, and/or light sensitivity? -Upper abdominal pain (usually under ribs on the right side)? -Decrease in urination or painful, frequent urinating? -Chest pain? -Shortness of breath? -Tenderness or pain with redness and/swelling in the calf(s) of your leg? Follow up visits:?? 1. 1 week visit:? incision check.? 2. 2-week visit: discuss feeding/care concerns, review control options and screen for anxiety/depression.? 3. 6-week visit for an annual exam.? ?? consultation services are available to all mothers and babies for the first year after delivery.? To make an appointment, please call [phone].? Activity Level: Activity as Tolerated Discharge Diet: Regular Follow Up Appointments: [facility] [Provider Group] Forms: [employer] Info Instructions
== END 2024-04-20 09:50 | disposition home or self-care (01) | DRG 787 ==
PROVIDERS: Admitting Provider Obstetrics & Gynecology; PCP Family Medicine; Visit Provider Obstetrics & Gynecology
PROC: 10D00Z1 Extraction of Products of Conception, Low, Open Approach (ICD-10-PCS; CPT 59514; principal; 2024-04-18 07:15)
DX: O99.344 Other mental disorders complicating childbirth (principal); O72.1 Other immediate postpartum hemorrhage; G89.18 Other acute postprocedural pain; F41.1 Generalized anxiety disorder; F32.A Depression, unspecified; O99.02 Anemia complicating childbirth; D64.9 Anemia, unspecified; O99.284 Endocrine, nutritional and metabolic diseases complicating childbirth; E28.2 Polycystic ovarian syndrome; Z87.59 Personal history of other complications of pregnancy, childbirth and the puerperium; J45.909 Unspecified asthma, uncomplicated; Z37.0 Single live birth
CPT/HCPCS: 01961; 36415; 64488; 76942; 85018; 85025; 86592; 86850; 86900; 86901; A9270; C9290; J0665; J0690; J1100; J1630; J1885; J2274; J2371; J2405; J2590; J7120

== ENCOUNTER 2024-08-09 10:19 | Outpatient (CLI) | payer MEDICAID, SELFPAY | END 2024-08-09 10:20 | disposition home or self-care (01) | LOC: NFLDREF 10:20 | PROVIDERS: PCP Family Medicine; Visit Provider Registered Nurse | DX: O90.0 Disruption of cesarean delivery wound (principal); Z39.2 Encounter for routine postpartum follow-up | CPT/HCPCS: 87070 ==